=== PATIENT | female | born 1995 | race Caucasian/White ===

== ENCOUNTER 2018-02-11 21:34 | Emergency (ER) | payer OTHER ==
[~2018-02-11] VITALS: Ht 157.5 cm; Wt 61.2 kg
--- NOTE | 2018-02-11 21:58 | ED SKIN/ALLERGY COMPLAINT ---
History of Present Illness General Chief Complaint: Skin Rash/ Abcess Stated Complaint: L WETZEL SKIN INFECTION Source: patient Exam Limitations: no limitations Vital Signs & Intake/Output Vital Signs & Intake/Output Vital Signs Date Time Temp Pulse Resp B/P B/P Pulse O2 O2 Flow FiO2 Mean Ox Delivery Rate 02/12 2248 98.1 96 18 128/79 99 Room Air 02/11 2247 Room Air 02/11 2141 98.3 98 20 135/90 98 Room Air ED Intake and Output 02/12 0000 02/11 1200 Intake Total 0 Output Total Balance 0 Intake, Oral 0 Patient 135 lb Weight Allergies Coded Allergies: No Known Allergies (02/11/18) Triage Note: PT TO TRIAGE WITH L WETZEL ?INFECTION. L WETZEL WITH [facility] NOTICED WITH REDNESS ALL AROUND THAT PT NOTICED LAST WEEK AND HAS PROGRESSIVELY GOT WORSE. AFEBRILE. Triage Nurses Notes Reviewed? yes Onset: Gradual Duration: constant Timing: recent history Severity: severe Severity Numbers: 7 Location: extremities Possible Factors: no cause identified : No Patient currently breastfeeds: No HPI: Patient is a 22-year-old female past medical history of bipolar disorder and hypothyroidism and depression who presents to emergency room with concerns of a one-week history of gradual onset of left lower extremity swelling redness and pain. Patient was advised by a friend who is a nurse to present emergent for concerns of MRSA. Patient denies any fever or discharge from the abscess site (Miriam RBOIN,Jean) Reconcile Medications Amoxicillin 500 MG TABLET 1 TAB PO BID CELLULITIS Meloxicam (Mobic) 15 MG TABLET 1 TAB PO DAILY PRN PAIN Sulfamethoxazole/Trimethoprim (Bactrim Ds Tablet) 800 MG-160 MG TABLET 1 TAB PO BID CELLULITIS Tylenol With Codeine (Tylenol With Codeine #3 Tablet) 300 MG-30 MG TABLET 1 TAB PO BIDP PRN pain (Cathleen DELGADO,Dwayne Yanez) Past History Travel History Traveled to [place] past 21 day No Medical History Any Pertinent Medical History? see below for history Neurological: NONE EENT: NONE Cardiovascular: NONE Respiratory: NONE Gastrointestinal: NONE Hepatic: NONE Renal: NONE Musculoskeletal: NONE Psychiatric: bipolar disease Endocrine: hypothyroidism Blood Disorders: NONE Cancer(s): NONE Surgical History Surgical History: non-contributory Psychosocial History What is your primary language Portuguese Tobacco Use: Current Daily Use Daily Tobacco Use Amount/Type: =< 4 Cigarettes daily ETOH Use: occasional use Family History Hx Contributory? No (Jean Bailey) Review of Systems Review of Systems Constitutional: Reports: no symptoms. EENTM: Reports: no symptoms. Respiratory: Reports: no symptoms. Cardiovascular: Reports: no symptoms. GI: Reports: no symptoms. Genitourinary: Reports: no symptoms. Musculoskeletal: Reports: no symptoms. Skin: Reports: see HPI, erythema. Neurological/Psychological: Reports: no symptoms. Hematologic/Endocrine: Reports: no symptoms. Immunologic/Allergic: Reports: no symptoms. All Other Systems: Reviewed and Negative (Jean Bailey) Physical Exam Physical Exam General Appearance: no apparent distress, alert, comfortable Head: atraumatic Eyes: Bilateral: normal appearance. Ears, Nose, Throat: hearing grossly normal Neck: normal inspection Respiratory: normal breath sounds Peripheral Pulses: 2+ dorsalis pedis (L) Diagram Body: 1) Noted approximate 5 cm of erythema with centralized 1 cm fluctuance and moderate point tenderness no active discharge dermatomes intact (Jean Bailey) Progress Differential Diagnosis: abscess/cellulitis, allergic reaction Plan of Care: Orders Procedure Date/time Status EXTREMETIES CULTURE 02/11 2159 Active Microbiology 02/11 2235 EXTREMITIE: Culture & Sensitivity - RECD 02/11 2235 EXTREMITIE: Gram Stain - RECD Culture pending patient was strongly advised follow-up with discharge instructions AND plan (Jean Bailey) Departure Departure Disposition: HOME OR SELF CARE Condition: Stable Clinical Impression Primary Impression: Cellulitis of left leg Secondary Impressions: Abscess of leg, left Referrals: Patient Has No Primary Care Dr (PCP/Family) Additional Instructions: As discussed in the prescription of Bactrim and amoxicillin as directed for the full course, prescriptions waiting at [facility], begin the prescription meloxicam for pain and inflammation, return to emergency room in 2 days for wound recheck if symptoms worsen such as fevers or significant redness extending beyond the pen marking borders 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 Again to apply warm compresses to region change the bandages if the bandages falloff that has BEEN PLACED ONTO YOU IN emergency room Departure Forms: Customer Survey General Discharge Information (Jean Bailey) Departure Prescriptions: Current Visit Scripts Amoxicillin 1 TAB PO BID #20 TAB Sulfamethoxazole/Trimethoprim (Bactrim Ds Tablet) 1 TAB PO BID #20 TAB Meloxicam (Mobic) 1 TAB PO DAILY PRN PAIN #10 TAB Tylenol With Codeine (Tylenol With Codeine #3 Tablet) 1 TAB PO BIDP PRN pain #6 TAB PA/INDUSTRIAL CONVEYOR BELT REPAIRER Co-Sign Statement Statement: ED Attending supervision documentation- [] I saw and evaluated the patient. I have also reviewed all the pertinent lab results and diagnostic results. I agree with the findings and the plan of care as documented in the PA's/INDUSTRIAL CONVEYOR BELT REPAIRER's documentation. [x] I have reviewed the ED Record and agree with the PA's/INDUSTRIAL CONVEYOR BELT REPAIRER's documentation. [] Additions or exceptions (if any) to the PAs/INDUSTRIAL CONVEYOR BELT REPAIRER's note and plan are summarized below: [] (Cathleen DELGADO,Dwayne Yanez) Procedures Incision and Drainage Site: LEFT LOWER LEG Blade Size: 15 I & D Procedure: Yes: betadine prep, sterile drapes applied, sterile dressing applied. Progress: MILD PURULENT D/C WAS incised after a 1 cm incision was made culture was obtained gauze and Tegaderm were applied patient tolerated well (Jean Bailey)
[2018-02-11] MEDS ORDERED: AMOXICILLIN500 M3 PO (22:07)
[2018-02-11] MEDS ORDERED: BACTRIM DS TAB1 EACH PO (22:07)
[2018-02-11] MEDS ORDERED: MOBIC15 M1 PO (22:07)
[2018-02-11 22:48] VITALS: BP 128/79
[2018-02-11] MEDS ORDERED: TYLENOL WITH C1 EACH PO (22:49)
== END 2018-02-11 23:00 ==
LOC: ERH 21:34
DX: L03.116 Cellulitis of left lower limb (principal); L02.416 Cutaneous abscess of left lower limb
CPT/HCPCS: 87184; 87070; 87147

== ENCOUNTER 2018-02-13 15:31 | Emergency (ER) | payer OTHER ==
[~2018-02-13] VITALS: Ht 157.5 cm; Wt 61.2 kg
[~2018-02-13 15:31] MED LIST: AMOXICILLIN500 M3 PO; BACTRIM DS TAB1 EACH PO; MOBIC15 M1 PO; TYLENOL WITH C1 EACH PO
--- NOTE | 2018-02-13 15:55 | ED ANIMAL BITE/WOUND CHECK ---
History of Present Illness General Chief Complaint: General Adult Stated Complaint: FOLLOW UP APPT S/P ER VIST X2DAYS AGO Source: patient Exam Limitations: no limitations Vital Signs & Intake/Output Vital Signs & Intake/Output Vital Signs Date Time Temp Pulse Resp B/P B/P Pulse O2 O2 Flow FiO2 Mean Ox Delivery Rate 02/13 1706 97 02/13 1705 98.8 77 18 117/82 98 Allergies Coded Allergies: No Known Allergies (02/11/18) Reconcile Medications Amoxicillin 500 MG TABLET 1 TAB PO BID CELLULITIS Meloxicam (Mobic) 15 MG TABLET 1 TAB PO DAILY PRN PAIN Sulfamethoxazole/Trimethoprim (Bactrim Ds Tablet) 800 MG-160 MG TABLET 1 TAB PO BID CELLULITIS Tylenol With Codeine (Tylenol With Codeine #3 Tablet) 300 MG-30 MG TABLET 1 TAB PO BIDP PRN pain Triage Nurses Notes Reviewed? yes Onset: Gradual Duration: better Timing: recent history Injury Environment: home Severity: mild Severity Numbers: 1 HPI: Patient is a 22-year-old female who presents emergency room with requests from me and which I evaluated patient at [place] emergency room 2 days ago for concerns of an abscess cellulitis to the left lower anterior aspect of her tibial region where she had an incision and drainage culture per old records indicate that it was positive for MRSA and culture results indicate that susceptibility was to Bactrim. Patient was compliant with her Bactrim and amoxicillin patient states she has no more pain denies any fevers and is otherwise without complaints. Past History Travel History Traveled to [place] past 21 day No Medical History Any Pertinent Medical History? see below for history Neurological: NONE EENT: NONE Cardiovascular: NONE Respiratory: NONE Gastrointestinal: NONE Hepatic: NONE Renal: NONE Musculoskeletal: NONE Psychiatric: bipolar disease Endocrine: hypothyroidism Blood Disorders: NONE Cancer(s): NONE Surgical History Surgical History: non-contributory Psychosocial History What is your primary language Kinyarwanda Family History Hx Contributory? No Review of Systems Review of Systems Constitutional: Reports: no symptoms. EENTM: Reports: no symptoms. Respiratory: Reports: no symptoms. Cardiovascular: Reports: no symptoms. GI: Reports: no symptoms. Genitourinary: Reports: no symptoms. Musculoskeletal: Reports: no symptoms. Skin: Reports: see HPI, erythema. Neurological/Psychological: Reports: no symptoms. Hematologic/Endocrine: Reports: no symptoms. Immunologic/Allergic: Reports: no symptoms. All Other Systems: Reviewed and Negative Physical Exam Physical Exam General Appearance: no apparent distress, alert, comfortable Head: atraumatic Eyes: Bilateral: normal appearance. Ears, Nose, Throat: hearing grossly normal Neck: normal inspection Respiratory: no respiratory distress Diagram Body: 1) Noted 5 mm incision with mild surrounding erythema mild expression upon palpation was noted with animal superficial purulent discharge no fluctuance or induration surgical pen markers were in place in which the erythema was significantly recessed from the border Progress Differential Diagnosis: abscess, cellulitis, joint infection, tenosysnovitis Plan of Care: Patient has improvement of symptoms and MRSA was positive discussed results with patient the bandage was changed with gauze and Tegaderm Departure Departure Disposition: HOME OR SELF CARE Condition: Stable Clinical Impression Primary Impression: Abscess of left leg Secondary Impressions: Cellulitis of left leg Referrals: Patient Has No Primary Care Dr (PCP/Family) Additional Instructions: As discussed continue to apply warm compresses and change the dressings once a day if symptoms worsen or IF develop new concerning symptom return to emergency room. Continue previously prescribed antibiotics Departure Forms: Customer Survey General Discharge Information
[2018-02-13 17:05] VITALS: BP 117/82
== END 2018-02-13 17:30 ==
LOC: ERH 15:31
DX: L02.416 Cutaneous abscess of left lower limb (principal); L03.116 Cellulitis of left lower limb